=== PATIENT | female | born 1970 | race American Indian/Alaskan Native ===

== ENCOUNTER 2021-04-06 11:10 | Outpatient (CLI) | payer OTHER ==
--- NOTE | 2021-04-06 13:30 | XRay Report ---
XR spine lumbosacral 2-3V INDICATION / CLINICAL INFORMATION: BACK PAIN. COMPARISON: None available. FINDINGS: BONES/JOINT(S): No acute fracture or subluxation. Mild degenerative disc disease at L4-5. SOFT TISSUES: No significant abnormality. ADDITIONAL FINDINGS: None. Signer Name: Gino Holm MD Signed: 04/06/2021 1:26 PM Workstation Name: [email or web address]
== END 2021-04-06 11:11 | disposition home or self-care (01) ==
LOC: XRAY 11:10
PROVIDERS: ATTEND Internal Medicine
DX: M51.36 Other intervertebral disc degeneration, lumbar region (principal)
CPT/HCPCS: 72100